=== PATIENT | female | born 1950 | race Asian ===

== ENCOUNTER 2016-12-04 09:51 | Emergency (ER) | payer OTHER ==
[~2016-12-04] VITALS: Ht 152.4 cm; Wt 56.7 kg
[~2016-12-04 09:51] MED LIST: DOXYCYCLINE HY100 M2 PO
[2016-12-04 10:26] VITALS: BP 138/73
--- NOTE | 2016-12-04 11:41 | ED GENERAL ADULT ---
History of Present Illness General Chief Complaint: Skin Rash/ Abcess Stated Complaint: ? POISON SARAH Source: patient Exam Limitations: no limitations Vital Signs & Intake/Output Vital Signs & Intake/Output Vital Signs Date Time Temp Pulse Resp B/P B/P Pulse O2 O2 Flow FiO2 Mean Ox Delivery Rate 12/04 1026 97.1 58 16 138/73 98 Room Air Allergies Coded Allergies: NO KNOWN ALLERGIES (09/30/12) Reconcile Medications Multivitamin (Daily Multiple Vitamin) 1 EACH TABLET 1 TAB PO DAILY VITAMIN SUPPORT (Reported) Nebivolol HCl (Bystolic) 5 MG TABLET 1 TAB PO DAILY HEART (Reported) Triage Note: PT STATES THAT SHE HAS POISON ON HER FACE AND HANDS THAT IS SPREADING, WORRIED DUE TO ITS NOW AROUND HER L EYE. DENIES SOB. COMPLAINS OF ITCHING Triage Nurses Notes Reviewed? yes Onset: Abrupt Duration: day(s): Timing: recent history HPI: 12/04/16 12 PM 66-year-old female presents to the emergency department complaining of poison sarah. She has a history of poison sarah in the past. On Wednesday she was working in the garden and now she has an itchy rash to her face and exposed areas. No shortness of breath. No history of diabetes. The onset of the symptoms was abrupt, the duration has been several days, the severity significant; as her symptoms required her to come to the emergency department for care. Past History Travel History Traveled to [place] past 21 day No Medical History Any Pertinent Medical History? see below for history Neurological: NONE EENT: NONE Cardiovascular: hypertension Respiratory: NONE Gastrointestinal: NONE Hepatic: NONE Renal: NONE Musculoskeletal: NONE Psychiatric: NONE Endocrine: NONE Blood Disorders: NONE Cancer(s): NONE GOVERNMENT TEACHER/Reproductive: NONE Surgical History Surgical History: non-contributory Psychosocial History What is your primary language Mongolian Tobacco Use: Never used ETOH Use: denies use Illicit Drug Use: denies illicit drug use Family History Hx Contributory? No Review of Systems Review of Systems Constitutional: Denies: fever. EENTM: Denies: visual changes. Respiratory: Denies: short of breath. Cardiovascular: Denies: chest pain. GI: Reports: no symptoms. Genitourinary: Reports: no symptoms. Musculoskeletal: Reports: no symptoms. Skin: Reports: see HPI. Neurological/Psychological: Reports: no symptoms. Hematologic/Endocrine: Reports: no symptoms. Immunologic/Allergic: Reports: no symptoms. Physical Exam Physical Exam General Appearance: well developed/nourished, alert, awake, anxious, mild distress Head: atraumatic, normal appearance Eyes: Bilateral: normal appearance, PERRL, EOMI. Ears, Nose, Throat: normal pharynx, normal ENT inspection Neck: normal inspection, supple Respiratory: no respiratory distress Cardiovascular: regular rate/rhythm (she was super easy) Peripheral Pulses: 4+ radial (R), 4+ radial (L) Gastrointestinal: soft, non-tender Back: normal range of motion Extremities: no edema Neurologic/Psych: no motor/sensory deficits, awake, alert, oriented x 3, normal gait Skin: rash Comments: She has a rash to the right side of her face and on both distal upper extremities consistent with contact dermatitis. Core Measures ACS in differential dx? No CVA/TIA Diagnosis: No Severe Sepsis Present: No Septic Shock Present: No Progress Differential Diagnoses I considered the following diagnoses in my evaluation of the patient: [Lupus, contact dermatitis, cellulitis, insect bite, Lyme disease] Plan of Care: Prednisone and Atarax as prescribed. Initial ED EKG: none Departure Departure Disposition: HOME OR SELF CARE Condition: Stable Clinical Impression Primary Impression: Contact dermatitis Referrals: SHARLENE SORENSEN,ALE Murphy (PCP/Family) Departure Forms: Customer Survey General Discharge Information Critical Care Note Critical Care Note Critical Care Time: non-applicable
[2016-12-04] MEDS ORDERED: BYSTOLIC5 M1 PO (11:48)
[2016-12-04] MEDS ORDERED: DAILY MULTIPLE1 EACH PO (11:49)
== END 2016-12-04 12:35 ==
LOC: ERH 09:51
DX: L25.9 Unspecified contact dermatitis, unspecified cause (principal)

== ENCOUNTER → 2017-09-24 | Day surgery (SDC) | payer OTHER ==
[~2017-09-24] VITALS: Ht 152.4 cm; Wt 59.0 kg
[~2017-09-24] MED LIST changes: +BYSTOLIC5 M1 PO; +DAILY MULTIPLE1 EACH PO
--- NOTE | 2017-09-24 12:06 | Operative Report ---
Operative/Inv Procedure Report Surgery Date: 09/24/17 Name of Procedure: Excisional biopsy left breast with wire localization Pre-Operative Diagnosis: Atypical ductal hyperplasia Post-Operative Diagnosis: Atypical ductal hyperplasia Estimated Blood Loss: scant Surgeon/Site Acquisition Specialist: Vanessa Haq MD Anesthesia: local monitored anesthesi Specimens: Left breast biopsy Operative/Procedure Note Note: Patient had a needle biopsy showing atypical ductal hyperplasia. She is brought to the operating for excisional biopsy. Preoperative wire localization was performed and the films reviewed. The left breast was prepped and draped in a sterile fashion using ChloraPrep. 2 g of Ancef was given. Local anesthesia 1% lidocaine mixed with half percent Marcaine was given. A periareolar incision was made in the lateral aspect. The wire was brought into the incision and the air concern was grasped using an Allis clamp. She was dissected using electrocautery. Specimen was removed and marked for orientation using margin map. intraoperative x-ray confirmed the presence of the clip in the specimen. Hemostasis was achieved. Deep tissue was approximated using interrupted Vicryl sutures and the skin was closed using a running Biosyn subcutaneous color stitch. Steri-Strips and sterile dressings were applied and patient transferred to the recovery room in satisfactory condition having tolerated procedure well.
--- NOTE | 2017-09-24 13:52 | MAMMOGRAPHY REPORT ---
PROCEDURE: MM GUIDANCE FOR BREAST PREOPERATIVE NEEDLE LOCALIZATION, left SPECIMEN RADIOGRAPHY CLINICAL INFORMATION: Stereotactic biopsy calcifications showing left-sided ADH at upper outer quadrant approximately 1-2 o'clock location at middle depth. Preoperative needle localization is requested. COMPARISON: Prior studies done on 08/02/2017. TECHNIQUE/FINDINGS: The details of the procedure, as well as the risks, benefits, and alternatives to the procedure were explained to the patient in detail and all of her questions were answered, after which, written informed consent was obtained. Prior to the procedure, the previous stereotactic guided tissue marker placement was localized using CC and ML views. Please note that there is no residual mass or calcification identified at this time in the biopsy bed. A time-out was performed, the lesion intended for needle localization was targeted and the skin of the left breast was then prepped and draped in the usual sterile fashion. Using mammographic guidance, sterile technique and buffered 2% lidocaine without epinephrine for local anesthesia, a 5 cm Kopans needle-wire was placed at the site of the tissue marker at 1-2 o'clock location at middle depth within the left breast using lateral medial approach. The patient tolerated the procedure well. The worksheet was appropriately labeled and was sent to the OR with the patient. Subsequently, following excision of the mass, specimen radiography was performed which revealed intact wire, and the previously placed tissue marker. IMPRESSION: 1. Successful mammographic-guided needle localization of the left breast biopsy-proven ADH at upper outer quadrant, approximately 1-2 o'clock location at middle depth. 2. Final specimen radiograph confirming removal of the previously placed tissue marker and intact wire combination. 3. The final histology report is pending.
== END ==
LOC: STS 03:20 → CBW.IIU 07:00 → STS 07:00 → CBW.IIU 08:00 → CBW.MAMMO 08:30
DX: N60.82 Other benign mammary dysplasias of left breast (principal); I10 Essential (primary) hypertension; K21.9 Gastro-esophageal reflux disease without esophagitis
CPT/HCPCS: J0131; J0690; J2250